=== PATIENT | female | born 1985 | race Caucasian/White ===

== ENCOUNTER 2024-08-21 11:36 | Emergency (ER) | payer MEDICAID ==
[~2024-08-21] VITALS: Ht 154.9 cm; Wt 50.0 kg
[2024-08-21 11:39] VITALS: TEMP 99.3
[2024-08-21] MEDS: TETanus/Pertussis (Acell)/Diphther VAC/PF (Tdap-Adult) 0.5ml syringe IMVAC ONE (13:05)
[2024-08-21] MEDS: levetiracetam inj 500 MG in normal saline 100ml IV soln 100 ML IV ONE (13:53)
[2024-08-21] MEDS: acetaminophen 1,000mg/100ml IV 100 ML IV ONE (14:02)
[2024-08-21 14:37] VITALS: BP 119/73; PULSE 107; O2SAT 99
[2024-08-21] MEDS ORDERED: KEP500T PO (15:25)
[2024-08-21] MEDS: ketorolac trometh 15mg/ml vial 15 MG/ML ML IV ONE (16:09)
[2024-08-21] MEDS ORDERED: HYDR-3965 PO (16:10)
[2024-08-21] MEDS ORDERED: ONDA-245 PO (16:35)
[2024-08-21] MEDS: ondansetron 4mg rapidly disintigrating tab PO ONE (16:50)
[2024-08-21] MEDS: HYDROcodone/acetaminophen 5mg/325mg tablet PO ONE (17:17)
[2024-08-21 17:29] VITALS: RESP 18
== END 2024-08-21 18:30 | disposition home or self-care (01) ==
LOC: ER 11:37
DX: S02.2XXA Fracture of nasal bones, initial encounter for closed fracture (principal); S02.5XXA Fracture of tooth (traumatic), initial encounter for closed fracture; S22.39XA Fracture of one rib, unspecified side, initial encounter for closed fracture; R56.9 Unspecified convulsions; Z79.899 Other long term (current) drug therapy; X58.XXXA Exposure to other specified factors, initial encounter; Y93.89 Activity, other specified; Y92.89 Other specified places as the place of occurrence of the external cause; Y99.8 Other external cause status
CPT/HCPCS: 70450; 70486; 90471; 90715; 96365; 96375; 99285; J0131; J1885; J1953; A6449

== ENCOUNTER 2025-01-04 09:33 | Emergency (ER) | payer MEDICAID ==
[~2025-01-04] VITALS: Ht 157.5 cm; Wt 44.0 kg
[~2025-01-04 09:33] MED LIST: KEP500T PO; ONDA-245 PO
[2025-01-04 11:06] VITALS: BP 121/87; PULSE 115; RESP 16; TEMP 97.8; O2SAT 98
== END 2025-01-04 11:07 | disposition home or self-care (01) ==
LOC: ER 09:34
DX: Z00.00 Encounter for general adult medical examination without abnormal findings (principal); Z88.5 Allergy status to narcotic agent
CPT/HCPCS: 99281

== ENCOUNTER 2025-01-07 14:43 | Emergency (ER) | payer MEDICAID, OTHER ==
[~2025-01-07] VITALS: Ht 154.9 cm; Wt 43.2 kg
[2025-01-07 19:21] VITALS: BP 110/92; PULSE 92; RESP 16; TEMP 98; O2SAT 100
== END 2025-01-07 19:39 | disposition home or self-care (01) ==
LOC: ER 14:43 → EEVIPCON 14:43 → ER 19:39
DX: T74.21XA Adult sexual abuse, confirmed, initial encounter (principal); Z88.5 Allergy status to narcotic agent; X58.XXXA Exposure to other specified factors, initial encounter; Y93.89 Activity, other specified; Y92.89 Other specified places as the place of occurrence of the external cause; Y99.8 Other external cause status
CPT/HCPCS: 99281; 99284

== ENCOUNTER 2025-09-14 13:52 | Emergency (ER) | payer MEDICAID, OTHER ==
[~2025-09-14] VITALS: Ht 154.9 cm; Wt 72.5 kg
[2025-09-14 14:46] LABS: LEUKOCYTE ESTERASE ,URINE SMALL (Neg); NITRITES, URINE NEGATIVE (Neg); OCCULT BLOOD,URINE SMALL (Neg)
[2025-09-14 14:49] LABS: URINE HCG NEGATIVE (NEG)
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
[2025-09-14 14:53] LABS: UA COLLECTION TYPE NON-SPECIFIED
[2025-09-14 14:54] LABS: SQUAMOUS EPITHELIAL CELL,UR FEW /LPF (FEW)
[2025-09-14 15:00] LABS: MEAN PLATELET VOLUME 6.4 FL (7.4-10.4); RED CELL DISTRIBUTION WIDTH 16.0 % (11.5-14.5)
[2025-09-14 15:15] LABS: CREATININE 0.64 MG/DL (0.40-0.90); TOTAL CARBON DIOXIDE 32.7 MMOL/L (24-32); eCRCL 90 ML/MIN; eGFR > 90 ML/MIN
[2025-09-14 15:24] LABS: ETHANOL 318 MG/DL (<10)
[2025-09-14 16:10] LABS: URINE AMPHETAMINE SCREEN NEGATIVE (Neg); URINE BARBITUATE SCREEN NEGATIVE (Neg); URINE BENZODIAZEPINES SCREEN NEGATIVE (Neg); URINE CANNABINOID SCREEN NEGATIVE (Neg); URINE COCAINE SCREEN NEGATIVE (Neg); URINE METHADONE SCREEN NEGATIVE (Neg); URINE OPIATE SCREEN NEGATIVE (Neg); URINE PHENCYCLIDINE SCREEN NEGATIVE (Neg)
[2025-09-14 21:22] VITALS: BP 126/80; PULSE 89; RESP 18; TEMP 89.6; O2SAT 99
== END 2025-09-14 21:24 | disposition home or self-care (01) ==
LOC: ER 13:52
DX: R45.851 Suicidal ideations (principal); F10.239 Alcohol dependence with withdrawal, unspecified; F41.9 Anxiety disorder, unspecified; Z88.5 Allergy status to narcotic agent; Z79.899 Other long term (current) drug therapy; Z20.822 Contact with and (suspected) exposure to COVID-19; Y90.8 Blood alcohol level of 240 mg/100 ml or more
CPT/HCPCS: 36415; 80053; 80305; 80320; 81001; 81025; 82140; 83690; 85025; 87077; 87088; 87186; 87811; 99284

== ENCOUNTER 2025-10-08 17:08 | Emergency (ER) | payer MEDICAID ==
[~2025-10-08] VITALS: Ht 154.9 cm; Wt 42.2 kg
[2025-10-08 17:29] VITALS: TEMP 98.6
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
[2025-10-08] MEDS: normal saline 1000ML IV soln IVB ONE (18:13)
[2025-10-08 18:42] LABS: MEAN PLATELET VOLUME 6.2 FL (7.4-10.4); RED CELL DISTRIBUTION WIDTH 19.1 % (11.5-14.5)
[2025-10-08 18:46] LABS: INR 1.0 INR
[2025-10-08 19:03] LABS: CREATININE 0.68 MG/DL (0.40-0.90); TOTAL CARBON DIOXIDE 32.9 MMOL/L (24-32); eCRCL 75 ML/MIN; eGFR > 90 ML/MIN
[2025-10-08 19:10] LABS: PLATELET ESTIMATE INCREASED
[2025-10-08 19:30] LABS: ETHANOL 321 MG/DL (<10)
--- NOTE | 2025-10-08 20:27 | ELECTROCARDIOGRAPH REPORT ---
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 Nunu Tavares Measurements Intervals [place] Rate: 76 P: 86 [place]: 129 QRS: 75 QRSD: 68 T: 51 QT: 502 QTc: 565 Interpretive Statements Sinus rhythm Ventricular premature complex Prolonged QT interval Electronically Signed On 10-08-2025 20:59:[address] Nunu Tavares Please click the below link to view image of tracing.
[2025-10-08] MEDS: haloperidol lactate 5mg/ml inj IM ONE (20:39)
[2025-10-08] MEDS: potassium Cl 20 mEq SR tablet PO STA (20:39)
[2025-10-09] MEDS ORDERED: CHLO25CA10 PO (06:56)
[2025-10-09] MEDS: HYDROcodone/acetaminophen 5mg/325mg tablet PO ONE (07:20)
[2025-10-09] MEDS: ondansetron/PF 4mg/2ml inj IV ONE (07:20)
[2025-10-09] MEDS: ketorolac trometh 15mg/ml vial 15 MG/ML ML IV ONE (07:20)
[2025-10-09] MEDS: normal saline 1000ML IV soln IVB ONE (07:21)
[2025-10-09 08:59] VITALS: BP 101/65; PULSE 72; RESP 16; O2SAT 96
== END 2025-10-09 13:54 | disposition home or self-care (01) ==
LOC: ER 17:09
DX: F10.229 Alcohol dependence with intoxication, unspecified (principal); F10.239 Alcohol dependence with withdrawal, unspecified; E87.6 Hypokalemia; F41.9 Anxiety disorder, unspecified; Z88.5 Allergy status to narcotic agent; F17.200 Nicotine dependence, unspecified, uncomplicated; Z90.49 Acquired absence of other specified parts of digestive tract; Z90.721 Acquired absence of ovaries, unilateral; Z98.890 Other specified postprocedural states; Y90.9 Presence of alcohol in blood, level not specified
CPT/HCPCS: 36415; 80048; 80076; 80320; 83735; 85008; 85025; 85610; 93005; 96361; 96372; 96374; 96375; 99285; J1200; J1630; J1885; J2405; J7030